=== PATIENT | male | born 1950 | race Caucasian/White ===

== ENCOUNTER 2017-03-21 21:19 | Inpatient (IN) | payer OTHER ==
[~2017-03-21] VITALS: Ht 185.4 cm; Wt 176.2 kg
[~2017-03-21 21:19] MED LIST: ALBU8.5H5 INH; ALLO300T PO; ALLO300T42 PO; ASCO500C2 PO; ASPI-515 PO; ASPI325T4; ASPI81TA18 PO; ATOR80TA75 PO; CHOL1CRY3 PO; CHOL500020 PO; CIPR500T3 PO; CYAN25009 PO; DILT120T3 PO; FLUT1DIS3 INH; FURO-92 PO; FURO10VI37 PO; INSU100V14 SQ-INSULIN; INSU100V8 SQ; LEVO750T26 PO; LOSA100T2 PO; NITR0.4T8 PO; POTA20PA PO; POTA20TA14 PO; RANI150C PO; RIVA10TA PO; RIVA20TA PO; SIMV80TA3; SOTA80TA PO; SOTA80TA18 PO; TIOT18CA INH
[2017-03-21] MEDS ORDERED: ASPIRIN 81 MG TABLET CHEW ONE (21:53)
[2017-03-21] MEDS ORDERED: ASPIRIN 81 MG TABLET CHEW PO ONE (22:00)
[2017-03-21] MEDS ORDERED: METF500T4 PO (22:23)
[2017-03-21] MEDS ORDERED: ALLO300T PO (22:23)
[2017-03-21] MEDS ORDERED: LOSA50TA6 PO (22:23)
[2017-03-21] MEDS ORDERED: GLIP10TA13 PO (22:23)
[2017-03-21] MEDS ORDERED: FURO80TA3 PO (22:23)
[2017-03-21] MEDS ORDERED: INSU100C5 SQ-INSULIN (22:23)
[2017-03-21] MEDS ORDERED: DULO20CA45 PO (22:23)
[2017-03-21] MEDS ORDERED: BUDE10.2 INH (22:23)
[2017-03-21 22:25] LABS: ASPARTATE AMINO TRANSFERASE 21 U/L (15-37); BLOOD UREA NITROGEN 20 mg/dL (7-18)
[2017-03-21 22:29] LABS: IS PT STATUS REG ER OR PRE ER? YES
[2017-03-21] MEDS ORDERED: MORPHINE SULFATE 4 MG/ML, 1ML IVPush PRN (23:30)
[2017-03-21] MEDS ORDERED: ONDANSETRON 2MG/ML, 2ML IVPush PRN (23:30)
[2017-03-22] MEDS ORDERED: ACETAMINOPHEN 325 MG TABLET PO PRN (00:30)
[2017-03-22] MEDS ORDERED: GLUCAGON 1 MG IM PRN (00:30)
[2017-03-22] MEDS ORDERED: DEXTROSE 50%, 50ML SYRINGE IVPush PRN (00:30)
[2017-03-22] MEDS ORDERED: PROMETHAZINE 25 MG/ML, 1ML IM PRN (00:30)
[2017-03-22] MEDS ORDERED: NITROGLYCERIN 0.4 MG/SPRAY SL PRN (00:30)
[2017-03-22] MEDS ORDERED: ONDANSETRON 2MG/ML, 2ML IVPush PRN (00:30)
[2017-03-22] MEDS ORDERED: DEXTROSE 4 GM TAB.CHEW PO PRN (00:30)
[2017-03-22] MEDS ORDERED: NITROGLYCERIN 0.4 MG BOTTLE (25 TABS) SL PRN ×2 (00:30)
[2017-03-22] MEDS ORDERED: morphine SULFATE 10 MG/ML, 1ML IVPush PRN (00:30)
[2017-03-22] MEDS ORDERED: MORPHINE SULFATE 4 MG/ML, 1ML IVPush PRN (00:52)
[2017-03-22] MEDS ORDERED: POTASSIUM CHLORIDE 20 MEQ TAB.ER.PRT PO ONE (01:00)
[2017-03-22 01:34] LABS: IS PT STATUS REG ER OR PRE ER? NO
[2017-03-22 01:47] VITALS: BP 129/80
[2017-03-22] MEDS: FAMOTIDINE 20 MG TABLET PO SCH ×2 (06:17→21:03)
[2017-03-22 06:26] LABS: BLOOD UREA NITROGEN 19 mg/dL (7-18)
[2017-03-22 06:32] LABS: IS PT STATUS REG ER OR PRE ER? NO
[2017-03-22 06:39] VITALS: BP 135/75
[2017-03-22 06:39] LABS: ASPARTATE AMINO TRANSFERASE 10 U/L (15-37)
[2017-03-22] MEDS: INSULIN ASPART 100 UNITS/ML, PEN SQ-INSULIN SCH ×6 (08:02→21:04)
[2017-03-22 08:22] LABS: PATH.CAST-FLAG NOT PRESENT; SPERM-FLAG NOT PRESENT; SRC-FLAG NOT PRESENT; XTAL-FLAG NOT PRESENT; YLC-FLAG NOT PRESENT
[2017-03-22] MEDS: ALBUTEROL/IPRATROPIUM 2.5MG/0.5MG, 3 ML NPPB SCH ×2 (09:00→20:46)
[2017-03-22] MEDS ORDERED: REGADENOSON 0.4 MG/5 ML SYRINGE ONE (09:47)
[2017-03-22] MEDS: FUROSEMIDE 40 MG/4 ML IV SCH ×2 (12:13→19:35)
[2017-03-22] MEDS: POTASSIUM CHLORIDE 20 MEQ TAB.ER.PRT PO SCH (12:13)
[2017-03-22] MEDS: DULOXETINE 20 MG CAPSULE.DR PO SCH ×2 (12:14→21:02)
[2017-03-22] MEDS: ASPIRIN 81 MG TABLET EC PO SCH (12:14)
[2017-03-22] MEDS: SOTALOL 120MG TABLET PO SCH ×2 (12:14→21:03)
[2017-03-22] MEDS: CYANOCOBALAMIN 1,000 MCG TABLET PO SCH (12:14)
[2017-03-22] MEDS: ALLOPURINOL 300 MG TABLET PO SCH (12:14)
[2017-03-22] MEDS: LOSARTAN 50MG TABLET PO SCH (12:15)
[2017-03-22] MEDS: RIVAROXABAN 20 MG TABLET PO SCH (12:15)
[2017-03-22] MEDS: SODIUM CHLORIDE FLUSH 10ML SYR IVF SCH ×2 (12:30→22:37)
[2017-03-22 12:43] VITALS: BP 116/90
[2017-03-22 20:00] VITALS: BP 143/79
[2017-03-22] MEDS: ATORVASTATIN 80 MG TABLET PO SCH (21:03)
[2017-03-23 01:27] VITALS: BP 126/81
[2017-03-23 06:37] LABS: BLOOD UREA NITROGEN 20 mg/dL (7-18)
[2017-03-23] MEDS: INSULIN ASPART 100 UNITS/ML, PEN SQ-INSULIN SCH ×6 (08:02→20:34)
[2017-03-23] MEDS: LOSARTAN 50MG TABLET PO SCH (08:10)
[2017-03-23] MEDS: RIVAROXABAN 20 MG TABLET PO SCH (08:10)
[2017-03-23] MEDS: CYANOCOBALAMIN 1,000 MCG TABLET PO SCH (08:10)
[2017-03-23] MEDS: FAMOTIDINE 20 MG TABLET PO SCH ×2 (08:10→20:24)
[2017-03-23] MEDS: ASPIRIN 81 MG TABLET EC PO SCH (08:10)
[2017-03-23] MEDS: DULOXETINE 20 MG CAPSULE.DR PO SCH ×2 (08:10→20:25)
[2017-03-23] MEDS: ALLOPURINOL 300 MG TABLET PO SCH (08:10)
[2017-03-23] MEDS: SOTALOL 120MG TABLET PO SCH ×2 (08:10→20:25)
[2017-03-23] MEDS: POTASSIUM CHLORIDE 20 MEQ TAB.ER.PRT PO SCH (08:10)
[2017-03-23] MEDS: FUROSEMIDE 40 MG/4 ML IV SCH (08:11)
[2017-03-23] MEDS: SODIUM CHLORIDE FLUSH 10ML SYR IVF SCH ×2 (08:12→20:24)
[2017-03-23 08:15] VITALS: BP 103/67
[2017-03-23] MEDS: ALBUTEROL/IPRATROPIUM 2.5MG/0.5MG, 3 ML NPPB SCH ×2 (09:00→21:00)
[2017-03-23 17:29] VITALS: BP 147/70
[2017-03-23 18:48] VITALS: BP 135/78
[2017-03-23] MEDS: ATORVASTATIN 80 MG TABLET PO SCH (20:25)
[2017-03-24 04:49] VITALS: BP 150/84
[2017-03-24 05:05] LABS: BLOOD UREA NITROGEN 22 mg/dL (7-18)
[2017-03-24 06:40] VITALS: BP 147/82
[2017-03-24] MEDS: ASPIRIN 81 MG TABLET EC PO SCH (08:29)
[2017-03-24] MEDS: INSULIN ASPART 100 UNITS/ML, PEN SQ-INSULIN SCH ×2 (08:29→08:32)
[2017-03-24] MEDS: FAMOTIDINE 20 MG TABLET PO SCH (08:30)
[2017-03-24] MEDS: POTASSIUM CHLORIDE 20 MEQ TAB.ER.PRT PO SCH (08:30)
[2017-03-24] MEDS: ALLOPURINOL 300 MG TABLET PO SCH (08:30)
[2017-03-24] MEDS: LOSARTAN 50MG TABLET PO SCH (08:31)
[2017-03-24] MEDS: CYANOCOBALAMIN 1,000 MCG TABLET PO SCH (08:31)
[2017-03-24] MEDS: DULOXETINE 20 MG CAPSULE.DR PO SCH (08:31)
[2017-03-24] MEDS: SOTALOL 120MG TABLET PO SCH (08:31)
[2017-03-24] MEDS: RIVAROXABAN 20 MG TABLET PO SCH (08:31)
[2017-03-24] MEDS: SODIUM CHLORIDE FLUSH 10ML SYR IVF SCH (08:32)
[2017-03-24] MEDS ORDERED: FUROSEMIDE 80 MG TABLET PO SCH (09:00)
[2017-03-24] MEDS: ALBUTEROL/IPRATROPIUM 2.5MG/0.5MG, 3 ML NPPB SCH (10:28)
== END 2017-03-24 12:06 | disposition home or self-care (01) | DRG 308 ==
LOC: ED 21:52 → SUATTDRO 23:32 → EDIP 23:52 → 5SO 03-22 00:28
PROVIDERS: ADMIT Internal Medicine; ATTEND Internal Medicine
DX: I48.0 Paroxysmal atrial fibrillation (principal); I50.43 Acute on chronic combined systolic (congestive) and diastolic (congestive) heart failure; E87.1 Hypo-osmolality and hyponatremia; J96.10 Chronic respiratory failure, unspecified whether with hypoxia or hypercapnia; E44.0 Moderate protein-calorie malnutrition; D68.69 Other thrombophilia; Z68.43 Body mass index [BMI] 50.0-59.9, adult; I11.0 Hypertensive heart disease with heart failure; E87.6 Hypokalemia; I25.119 Atherosclerotic heart disease of native coronary artery with unspecified angina pectoris; I25.5 Ischemic cardiomyopathy; D63.8 Anemia in other chronic diseases classified elsewhere; D72.829 Elevated white blood cell count, unspecified; E11.65 Type 2 diabetes mellitus with hyperglycemia; E66.01 Morbid (severe) obesity due to excess calories; E78.5 Hyperlipidemia, unspecified; J44.9 Chronic obstructive pulmonary disease, unspecified; K21.9 Gastro-esophageal reflux disease without esophagitis; M10.9 Gout, unspecified; Z96.652 Presence of left artificial knee joint; M48.02 Spinal stenosis, cervical region; Z79.01 Long term (current) use of anticoagulants; Z79.4 Long term (current) use of insulin; Z95.5 Presence of coronary angioplasty implant and graft; Z99.81 Dependence on supplemental oxygen
CPT/HCPCS: 36415; 71010; 78452; 80048; 80053; 80061; 81001; 82962; 83880; 84443; 84484; 85025; 93005; 93017; 93970; 94640; 96374; 96375; C8929; J1815; J1940; J2405; J2785; J7620; A9502; C9898

== ENCOUNTER 2017-03-27 19:47 | Inpatient (IN) | payer OTHER ==
[~2017-03-27] VITALS: Ht 175.3 cm; Wt 176.8 kg
[~2017-03-27 19:47] MED LIST changes: +BUDE10.2 INH; +DULO20CA45 PO; +FURO80TA3 PO; +GLIP10TA13 PO; +INSU100C5 SQ-INSULIN; +LOSA50TA6 PO; +METF500T4 PO
[2017-03-27] MEDS ORDERED: ASPIRIN 81 MG TABLET CHEW PO ONE (20:00)
[2017-03-27] MEDS ORDERED: SODIUM CHLORIDE FLUSH 10ML SYR IVF ONE (20:00)
[2017-03-27] MEDS ORDERED: ASPIRIN 81 MG TABLET CHEW ONE (20:07)
[2017-03-27] MEDS ORDERED: FAMOTIDINE 20 MG/2 ML ONE (20:07)
[2017-03-27] MEDS ORDERED: MAALOX/HYOSCYAMINE/LIDOCAINE 45 ML BOTTLE ONE (20:07)
[2017-03-27] MEDS ORDERED: FAMOTIDINE 20 MG/2 ML IVP ONE (20:30)
[2017-03-27] MEDS ORDERED: MAALOX/HYOSCYAMINE/LIDOCAINE 45 ML BOTTLE PO ONE (20:30)
[2017-03-27 20:32] LABS: ASPARTATE AMINO TRANSFERASE 17 U/L (15-37); BLOOD UREA NITROGEN 15 mg/dL (7-18)
[2017-03-27 20:48] LABS: IS PT STATUS REG ER OR PRE ER? YES
[2017-03-27] MEDS ORDERED: GLIP5TAB10 PO (21:06)
[2017-03-27] MEDS ORDERED: hydrALAzine 20 MG/ML, 1ML IVPush PRN (22:00)
[2017-03-27] MEDS ORDERED: HEPARIN 5,000 UNITS/ML, 1ML SQ SCH (22:00)
[2017-03-27] MEDS ORDERED: OXYcodone IR 5MG TABLET PO PRN (22:00)
[2017-03-27] MEDS ORDERED: morphine SULFATE 10 MG/ML, 1ML IVPush PRN (22:00)
[2017-03-27] MEDS ORDERED: POLYETHYLENE GLYCOL 17 GM PACKET PO PRN (22:00)
[2017-03-27] MEDS ORDERED: ONDANSETRON 2MG/ML, 2ML IVPush PRN (22:00)
[2017-03-27] MEDS ORDERED: LABETALOL 5MG/ML, 20ML IVPush PRN (22:00)
[2017-03-27] MEDS ORDERED: BISACODYL 10 MG SUPP PR PRN (22:00)
[2017-03-27] MEDS ORDERED: PANTOPRAZOLE 40 MG IV ONE (22:21)
[2017-03-27] MEDS ORDERED: NITROGLYCERIN 0.4 MG BOTTLE (25 TABS) SL PRN (22:30)
[2017-03-27] MEDS: SODIUM CHLORIDE 0.9% 1,000 ML IV SCH (22:31)
[2017-03-27] MEDS: PANTOPRAZOLE 40 MG IV IVPush SCH (22:31)
[2017-03-27] MEDS ORDERED: ALBUTEROL SULFATE 2.5 MG/3 ML NPPB PRN (23:45)
[2017-03-28] MEDS: SOTALOL 120MG TABLET PO SCH ×3 (00:55→20:46)
[2017-03-28 03:40] VITALS: BP 106/72
[2017-03-28] MEDS: SODIUM CHLORIDE 0.9% 1,000 ML IV SCH ×2 (05:06→09:00)
[2017-03-28 05:42] LABS: ASPARTATE AMINO TRANSFERASE 20 U/L (15-37); BLOOD UREA NITROGEN 15 mg/dL (7-18)
[2017-03-28] MEDS: INSULIN ASPART 100 UNITS/ML, PEN SQ-INSULIN SCH ×4 (07:00→22:14)
[2017-03-28] MEDS ORDERED: IPRATROPIUM 0.5 MG/2.5 ML INHA NPPB SCH ×2 (09:00)
[2017-03-28] MEDS: FLUTICASONE/VILANTEROL 200-25MCG/INH INH SCH (09:00)
[2017-03-28 09:05] VITALS: BP 124/65
[2017-03-28] MEDS: SENNA/DOCUSATE TABLET PO SCH (10:11)
[2017-03-28] MEDS: PANTOPRAZOLE 40 MG IV IVPush SCH (10:11)
[2017-03-28] MEDS: ASPIRIN 81 MG TABLET EC PO SCH (10:12)
[2017-03-28] MEDS: LOSARTAN 50MG TABLET PO SCH (10:12)
[2017-03-28] MEDS: RIVAROXABAN 20 MG TABLET PO SCH (10:12)
[2017-03-28] MEDS: DULOXETINE 20 MG CAPSULE.DR PO SCH ×2 (10:12→20:46)
[2017-03-28] MEDS: ALLOPURINOL 300 MG TABLET PO SCH (10:12)
[2017-03-28 14:15] VITALS: BP 129/81
[2017-03-28] MEDS ORDERED: MIDAZOLAM 1 MG/ML, 5ML ONE (14:42)
[2017-03-28] MEDS ORDERED: FENTANYL PF 100 MCG/2ML ONE (14:42)
[2017-03-28] MEDS: IPRATROPIUM 0.5 MG/2.5 ML INHA NPPB SCH ×2 (15:00→20:06)
[2017-03-28] MEDS ORDERED: POTASSIUM CHLORIDE 40 MEQ in SODIUM CHLORIDE 0.9% 500 ML IV ONE (17:30)
[2017-03-28 19:33] VITALS: BP 116/68
[2017-03-28] MEDS: ATORVASTATIN 80 MG TABLET PO SCH (20:46)
[2017-03-29 01:14] VITALS: BP 117/64
[2017-03-29] MEDS: IPRATROPIUM 0.5 MG/2.5 ML INHA NPPB SCH ×4 (03:00→21:00)
[2017-03-29 04:43] LABS: BLOOD UREA NITROGEN 12 mg/dL (7-18)
[2017-03-29] MEDS: INSULIN ASPART 100 UNITS/ML, PEN SQ-INSULIN SCH ×4 (07:00→20:53)
[2017-03-29 08:30] VITALS: BP 120/77
[2017-03-29] MEDS: DULOXETINE 20 MG CAPSULE.DR PO SCH ×2 (08:53→20:03)
[2017-03-29] MEDS: ALLOPURINOL 300 MG TABLET PO SCH (08:53)
[2017-03-29] MEDS: LOSARTAN 50MG TABLET PO SCH (08:53)
[2017-03-29] MEDS: SENNA/DOCUSATE TABLET PO SCH (08:53)
[2017-03-29] MEDS: RIVAROXABAN 20 MG TABLET PO SCH (08:53)
[2017-03-29] MEDS: PANTOPRAZOLE 40 MG IV IVPush SCH (08:54)
[2017-03-29] MEDS: FLUTICASONE/VILANTEROL 200-25MCG/INH INH SCH (09:00)
[2017-03-29] MEDS: SOTALOL 120MG TABLET PO SCH ×2 (09:00→20:03)
[2017-03-29] MEDS: ASPIRIN 81 MG TABLET EC PO SCH (09:00)
[2017-03-29 14:30] VITALS: BP 130/75
[2017-03-29 18:43] VITALS: BP 131/75
[2017-03-29] MEDS: ATORVASTATIN 80 MG TABLET PO SCH (20:02)
[2017-03-29] MEDS ORDERED: INSULIN ASPART 100 UNITS/ML, PEN SQ-INSULIN SCH (21:00)
[2017-03-30 01:41] VITALS: BP 138/80
[2017-03-30] MEDS: IPRATROPIUM 0.5 MG/2.5 ML INHA NPPB SCH ×2 (02:31→08:10)
[2017-03-30] MEDS: INSULIN ASPART 100 UNITS/ML, PEN SQ-INSULIN SCH ×2 (07:23→10:54)
[2017-03-30] MEDS: SENNA/DOCUSATE TABLET PO SCH (07:30)
[2017-03-30 07:33] VITALS: BP 137/81
[2017-03-30] MEDS: LOSARTAN 50MG TABLET PO SCH (07:39)
[2017-03-30] MEDS: RIVAROXABAN 20 MG TABLET PO SCH (07:40)
[2017-03-30] MEDS: SOTALOL 120MG TABLET PO SCH (07:40)
[2017-03-30] MEDS: DULOXETINE 20 MG CAPSULE.DR PO SCH (07:41)
[2017-03-30] MEDS: ASPIRIN 81 MG TABLET EC PO SCH (07:41)
[2017-03-30] MEDS: ALLOPURINOL 300 MG TABLET PO SCH (07:42)
[2017-03-30] MEDS: PANTOPRAZOLE 40 MG IV IVPush SCH (07:43)
[2017-03-30] MEDS: FLUTICASONE/VILANTEROL 200-25MCG/INH INH SCH (10:53)
[2017-03-30] MEDS ORDERED: LACTOBACILLUS CHEW TABLET PO SCH (11:00)
[2017-03-30] MEDS ORDERED: AMOXICILLIN/CLAV 500-125MG TABLET PO SCH (11:00)
[2017-03-30] MEDS ORDERED: ACID1TAB7 PO (12:30)
[2017-03-30] MEDS ORDERED: AMOX-367 PO (12:30)
[2017-03-30] MEDS ORDERED: PANT40TA3 PO (12:30)
== END 2017-03-30 14:17 | disposition home health service (06) | DRG 291 ==
LOC: ED 21:23 → EDIP 21:46 → 3NE 23:00
PROVIDERS: ADMIT Internal Medicine; ATTEND Internal Medicine
DX: I11.0 Hypertensive heart disease with heart failure (principal); K85.30 Drug induced acute pancreatitis without necrosis or infection; K85.00 Idiopathic acute pancreatitis without necrosis or infection; N39.0 Urinary tract infection, site not specified; E44.0 Moderate protein-calorie malnutrition; J96.10 Chronic respiratory failure, unspecified whether with hypoxia or hypercapnia; D68.69 Other thrombophilia; Z68.43 Body mass index [BMI] 50.0-59.9, adult; K21.9 Gastro-esophageal reflux disease without esophagitis; I48.0 Paroxysmal atrial fibrillation; I25.5 Ischemic cardiomyopathy; B95.1 Streptococcus, group B, as the cause of diseases classified elsewhere; E66.01 Morbid (severe) obesity due to excess calories; D63.8 Anemia in other chronic diseases classified elsewhere; E11.65 Type 2 diabetes mellitus with hyperglycemia; E78.5 Hyperlipidemia, unspecified; E87.6 Hypokalemia; I25.10 Atherosclerotic heart disease of native coronary artery without angina pectoris; J44.9 Chronic obstructive pulmonary disease, unspecified; K76.0 Fatty (change of) liver, not elsewhere classified; Z96.652 Presence of left artificial knee joint; K80.20 Calculus of gallbladder without cholecystitis without obstruction; M10.9 Gout, unspecified; M48.02 Spinal stenosis, cervical region; N28.1 Cyst of kidney, acquired; I50.9 Heart failure, unspecified; Z95.5 Presence of coronary angioplasty implant and graft; I25.2 Old myocardial infarction; Z79.01 Long term (current) use of anticoagulants; Z79.82 Long term (current) use of aspirin; Z79.899 Other long term (current) drug therapy; Z82.49 Family history of ischemic heart disease and other diseases of the circulatory system; Z83.3 Family history of diabetes mellitus
CPT/HCPCS: 36415; 71010; 74181; 76700; 80048; 80053; 80061; 81001; 82962; 83036; 83690; 83735; 83880; 84439; 84443; 84484; 85025; 85379; 85610; 85730; 87086; 87147; 93005; 94640; 96374; 99156; 99157; J1815; J2250; J3010; J3480; J7613; J7644; C9113; J7030; J7040; S0028

== ENCOUNTER 2017-04-03 16:58 | Inpatient (IN) | payer OTHER ==
[~2017-04-03] VITALS: Ht 185.4 cm; Wt 179.0 kg
[~2017-04-03 16:58] MED LIST changes: +ACID1TAB7 PO; +AMOX-367 PO; +GLIP5TAB10 PO; +PANT40TA3 PO
[2017-04-03] MEDS ORDERED: PANTOPRAZOLE 80 MG in SODIUM CHLORIDE 0.9% 50 ML IVPB ONE (17:17)
[2017-04-03] MEDS ORDERED: SODIUM CHLORIDE 0.9% 1,000 ML IV ONE (17:17)
[2017-04-03] MEDS ORDERED: PANTOPRAZOLE 80 MG in SODIUM CHLORIDE 0.9% 100 ML IV SCH (17:17)
[2017-04-03] MEDS ORDERED: PLEASE ENTER HEIGHT AND WEIGHT MC SCH (17:30)
[2017-04-03] MEDS ORDERED: SODIUM CHLORIDE FLUSH 10ML SYR IVF ONE (17:30)
[2017-04-03 17:51] LABS: BLOOD UREA NITROGEN 31 mg/dL (7-18)
[2017-04-03 17:55] LABS: ASPARTATE AMINO TRANSFERASE 17 U/L (15-37)
[2017-04-03] MEDS ORDERED: ANTI INHIBITOR COAGULANT COMP IVPush ONE (18:30)
[2017-04-03] MEDS ORDERED: GLUCAGON 1 MG IM PRN (19:00)
[2017-04-03] MEDS: PANTOPRAZOLE 80 MG in SODIUM CHLORIDE 0.9% 100 ML IV SCH (19:00)
[2017-04-03] MEDS ORDERED: DEXTROSE 50%, 50ML SYRINGE IVPush PRN (19:00)
[2017-04-03] MEDS ORDERED: DEXTROSE 4 GM TAB.CHEW PO PRN (19:00)
[2017-04-03] MEDS ORDERED: ENALAPRILAT 1.25 MG/ML, 2ML IVPush PRN (19:30)
[2017-04-03] MEDS ORDERED: PROMETHAZINE 25 MG/ML, 1ML IM PRN (19:30)
[2017-04-03] MEDS ORDERED: LABETALOL 5MG/ML, 20ML IVPush PRN (19:30)
[2017-04-03] MEDS ORDERED: ONDANSETRON 2MG/ML, 2ML IVPush PRN (19:30)
[2017-04-03] MEDS ORDERED: hydrALAzine 20 MG/ML, 1ML IVPush PRN (19:30)
[2017-04-03 19:40] LABS: IS PT STATUS REG ER OR PRE ER? YES
[2017-04-03] MEDS: SODIUM CHLORIDE 0.9% 1,000 ML IV SCH (20:46)
[2017-04-03 21:00] VITALS: BP 142/86
[2017-04-03] MEDS: INSULIN DETEMIR 100 UNITS/ML, PEN SQ-INSULIN SCH (21:00)
[2017-04-03] MEDS: ATORVASTATIN 80 MG TABLET PO SCH (21:36)
[2017-04-03] MEDS: SODIUM CHLORIDE FLUSH 10ML SYR IVF SCH (21:36)
[2017-04-03] MEDS: SOTALOL 120MG TABLET PO SCH (21:36)
[2017-04-03] MEDS: DULOXETINE 20 MG CAPSULE.DR PO SCH (21:37)
[2017-04-04] MEDS: PANTOPRAZOLE 80 MG in SODIUM CHLORIDE 0.9% 100 ML IV SCH ×3 (01:07→22:54)
[2017-04-04 01:46] LABS: ASPARTATE AMINO TRANSFERASE 18 U/L (15-37); BLOOD UREA NITROGEN 31 mg/dL (7-18)
[2017-04-04 01:52] LABS: IS PT STATUS REG ER OR PRE ER? NO
[2017-04-04 02:00] VITALS: BP 126/77
[2017-04-04] MEDS: SODIUM CHLORIDE 0.9% 1,000 ML IV SCH ×4 (05:21→22:54)
[2017-04-04] MEDS: ALBUTEROL/IPRATROPIUM 2.5MG/0.5MG, 3 ML NPPB SCH ×3 (07:17→21:24)
[2017-04-04 07:18] VITALS: BP 150/71
[2017-04-04] MEDS: FLUTICASONE/VILANTEROL 200-25MCG/INH INH SCH (09:00)
[2017-04-04] MEDS ORDERED: FLUTICASONE/VILANTEROL 100-25MCG/INH INH SCH (09:00)
[2017-04-04] MEDS: SODIUM CHLORIDE FLUSH 10ML SYR IVF SCH ×2 (09:10→20:23)
[2017-04-04] MEDS: DULOXETINE 20 MG CAPSULE.DR PO SCH ×2 (09:10→20:24)
[2017-04-04] MEDS: SOTALOL 120MG TABLET PO SCH ×2 (09:10→20:24)
[2017-04-04] MEDS: LOSARTAN 50MG TABLET PO SCH (09:10)
[2017-04-04] MEDS: CYANOCOBALAMIN 1,000 MCG TABLET PO SCH (09:10)
[2017-04-04] MEDS: FUROSEMIDE 80 MG TABLET PO SCH (09:11)
[2017-04-04] MEDS: ALLOPURINOL 300 MG TABLET PO SCH (09:11)
[2017-04-04] MEDS: INSULIN DETEMIR 100 UNITS/ML, PEN SQ-INSULIN SCH ×2 (09:11→20:24)
[2017-04-04 14:28] VITALS: BP 125/81
[2017-04-04] MEDS: INSULIN ASPART 100 UNITS/ML, PEN SQ-INSULIN SCH ×2 (18:32→20:25)
[2017-04-04 19:07] VITALS: BP 124/74
[2017-04-04] MEDS: ATORVASTATIN 80 MG TABLET PO SCH (20:23)
[2017-04-05 01:24] VITALS: BP 147/76
[2017-04-05] MEDS: SODIUM CHLORIDE 0.9% 1,000 ML IV SCH ×3 (05:57→20:38)
[2017-04-05] MEDS: INSULIN ASPART 100 UNITS/ML, PEN SQ-INSULIN SCH ×4 (07:00→20:35)
[2017-04-05] MEDS ORDERED: KETAMINE 10 MG/ML, 20ML ONE (08:05)
[2017-04-05 09:00] VITALS: BP 112/57
[2017-04-05] MEDS: INSULIN DETEMIR 100 UNITS/ML, PEN SQ-INSULIN SCH ×2 (09:00→20:36)
[2017-04-05] MEDS: FLUTICASONE/VILANTEROL 200-25MCG/INH INH SCH (09:00)
[2017-04-05] MEDS: SODIUM CHLORIDE FLUSH 10ML SYR IVF SCH ×2 (09:10→20:35)
[2017-04-05] MEDS: SOTALOL 120MG TABLET PO SCH ×2 (09:19→20:34)
[2017-04-05] MEDS: LOSARTAN 50MG TABLET PO SCH (09:20)
[2017-04-05] MEDS: DULOXETINE 20 MG CAPSULE.DR PO SCH ×2 (09:21→20:35)
[2017-04-05] MEDS: ALLOPURINOL 300 MG TABLET PO SCH (09:22)
[2017-04-05] MEDS: CYANOCOBALAMIN 1,000 MCG TABLET PO SCH (09:22)
[2017-04-05] MEDS: ALBUTEROL/IPRATROPIUM 2.5MG/0.5MG, 3 ML NPPB SCH ×3 (10:45→20:44)
[2017-04-05] MEDS: PANTOPRAZOLE 80 MG in SODIUM CHLORIDE 0.9% 100 ML IV SCH (11:12)
[2017-04-05] MEDS ORDERED: POTASSIUM CHLORIDE 20 MEQ TAB.ER.PRT PO ONE (12:00)
[2017-04-05] MEDS ORDERED: PROPOFOL 10 MG/ML, 20ML ONE (13:25)
[2017-04-05 15:14] VITALS: BP 151/82
[2017-04-05] MEDS: SUCRALFATE 1 GM/10 ML UDC PO SCH ×2 (15:23→17:47)
[2017-04-05] MEDS: FUROSEMIDE 80 MG TABLET PO SCH (17:46)
[2017-04-05 20:00] VITALS: BP 145/76
[2017-04-05] MEDS: PANTOPROZOLE 40MG TABLET PO SCH (20:34)
[2017-04-05] MEDS: ATORVASTATIN 80 MG TABLET PO SCH (20:34)
[2017-04-06 02:00] VITALS: BP 156/81
[2017-04-06] MEDS: SODIUM CHLORIDE 0.9% 1,000 ML IV SCH ×2 (03:48→12:00)
[2017-04-06 06:07] LABS: BLOOD UREA NITROGEN 12 mg/dL (7-18)
[2017-04-06 07:02] VITALS: BP 151/78
[2017-04-06] MEDS: ALBUTEROL/IPRATROPIUM 2.5MG/0.5MG, 3 ML NPPB SCH (07:40)
[2017-04-06] MEDS: CYANOCOBALAMIN 1,000 MCG TABLET PO SCH (08:13)
[2017-04-06] MEDS: ALLOPURINOL 300 MG TABLET PO SCH (08:13)
[2017-04-06] MEDS: PANTOPROZOLE 40MG TABLET PO SCH ×2 (08:13→20:54)
[2017-04-06] MEDS: SOTALOL 120MG TABLET PO SCH ×2 (08:14→20:55)
[2017-04-06] MEDS: LOSARTAN 50MG TABLET PO SCH (08:14)
[2017-04-06] MEDS: DULOXETINE 20 MG CAPSULE.DR PO SCH ×2 (08:14→20:54)
[2017-04-06] MEDS: FUROSEMIDE 80 MG TABLET PO SCH (08:14)
[2017-04-06] MEDS: FLUTICASONE/VILANTEROL 200-25MCG/INH INH SCH (08:21)
[2017-04-06] MEDS: SODIUM CHLORIDE FLUSH 10ML SYR IVF SCH ×2 (08:21→20:59)
[2017-04-06] MEDS: INSULIN ASPART 100 UNITS/ML, PEN SQ-INSULIN SCH ×4 (08:21→20:58)
[2017-04-06] MEDS: INSULIN DETEMIR 100 UNITS/ML, PEN SQ-INSULIN SCH ×2 (08:22→20:58)
[2017-04-06 12:28] VITALS: BP 132/80
[2017-04-06] MEDS ORDERED: ALBUTEROL/IPRATROPIUM 2.5MG/0.5MG, 3 ML NPPB PRN (16:00)
[2017-04-06] MEDS ORDERED: RIVAROXABAN 20 MG TABLET PO ONE (16:30)
[2017-04-06] MEDS ORDERED: ASPIRIN 81 MG TABLET CHEW PO ONE (16:30)
[2017-04-06] MEDS: SUCRALFATE 1 GM/10 ML UDC PO SCH ×2 (17:29→20:55)
[2017-04-06 19:32] VITALS: BP 149/77
[2017-04-06] MEDS: ATORVASTATIN 80 MG TABLET PO SCH (20:54)
[2017-04-07 00:27] VITALS: BP 138/77
[2017-04-07 06:40] VITALS: BP 135/74
[2017-04-07] MEDS: INSULIN ASPART 100 UNITS/ML, PEN SQ-INSULIN SCH (08:18)
[2017-04-07] MEDS ORDERED: SUCR1ORA2 PO (08:18)
[2017-04-07] MEDS: INSULIN DETEMIR 100 UNITS/ML, PEN SQ-INSULIN SCH (08:51)
[2017-04-07] MEDS: FLUTICASONE/VILANTEROL 200-25MCG/INH INH SCH (08:51)
[2017-04-07] MEDS: SUCRALFATE 1 GM/10 ML UDC PO SCH (08:52)
[2017-04-07] MEDS: LOSARTAN 50MG TABLET PO SCH (08:52)
[2017-04-07] MEDS: SOTALOL 120MG TABLET PO SCH (08:52)
[2017-04-07] MEDS: DULOXETINE 20 MG CAPSULE.DR PO SCH (08:53)
[2017-04-07] MEDS: ALLOPURINOL 300 MG TABLET PO SCH (08:53)
[2017-04-07] MEDS: CYANOCOBALAMIN 1,000 MCG TABLET PO SCH (08:53)
[2017-04-07] MEDS: FUROSEMIDE 80 MG TABLET PO SCH (08:53)
[2017-04-07] MEDS: PANTOPROZOLE 40MG TABLET PO SCH (08:58)
[2017-04-07] MEDS ORDERED: RIVAROXABAN 20 MG TABLET PO SCH (09:00)
[2017-04-07] MEDS: SODIUM CHLORIDE FLUSH 10ML SYR IVF SCH (09:00)
[2017-04-07] MEDS ORDERED: ASPIRIN 81 MG TABLET EC PO SCH (09:00)
[2017-04-07] MEDS ORDERED: PHENAZOPYRIDINE 100 MG TABLET PO SCH (11:30)
== END 2017-04-07 11:55 | disposition home or self-care (01) | DRG 378 ==
LOC: ED 17:56 → EDIP 18:05 → 4EST 20:11
PROVIDERS: ADMIT Internal Medicine; ATTEND Internal Medicine
PROC: 0DB68ZX Excision of Stomach, Via Natural or Artificial Opening Endoscopic, Diagnostic (ICD-10-PCS; principal; 2017-04-04)
DX: K25.4 Chronic or unspecified gastric ulcer with hemorrhage (principal); J96.10 Chronic respiratory failure, unspecified whether with hypoxia or hypercapnia; D68.69 Other thrombophilia; Z68.43 Body mass index [BMI] 50.0-59.9, adult; I50.32 Chronic diastolic (congestive) heart failure; K92.1 Melena; E78.5 Hyperlipidemia, unspecified; I11.0 Hypertensive heart disease with heart failure; I25.10 Atherosclerotic heart disease of native coronary artery without angina pectoris; I25.2 Old myocardial infarction; I25.5 Ischemic cardiomyopathy; I50.9 Heart failure, unspecified; J44.9 Chronic obstructive pulmonary disease, unspecified; K21.9 Gastro-esophageal reflux disease without esophagitis; M10.9 Gout, unspecified; D64.9 Anemia, unspecified; E11.65 Type 2 diabetes mellitus with hyperglycemia; E66.01 Morbid (severe) obesity due to excess calories; I35.8 Other nonrheumatic aortic valve disorders; I48.0 Paroxysmal atrial fibrillation; M48.02 Spinal stenosis, cervical region; Z96.652 Presence of left artificial knee joint; Z79.01 Long term (current) use of anticoagulants; Z79.899 Other long term (current) drug therapy; Z82.49 Family history of ischemic heart disease and other diseases of the circulatory system; Z83.3 Family history of diabetes mellitus; Z87.11 Personal history of peptic ulcer disease; Z95.5 Presence of coronary angioplasty implant and graft; Z99.81 Dependence on supplemental oxygen
CPT/HCPCS: 36415; 71010; 80048; 80053; 81003; 82962; 83690; 83735; 84100; 84484; 85014; 85018; 85025; 85610; 86850; 86900; 87324; 88305; 93005; 94640; 96365; 96375; J1815; J2704; J7198; J7620; C9113; J7030

== ENCOUNTER 2017-09-03 21:12 | Inpatient (IN) | payer OTHER ==
[~2017-09-03] VITALS: Ht 185.4 cm; Wt 180.0 kg
[~2017-09-03 21:12] MED LIST changes: -ALLO300T42 PO; +ALLO300T80 PO; +ASPI-696 PO; +ASPI325T17; -ASPI325T4; -ASPI81TA18 PO; +ATOR-2 PO; -ATOR80TA75 PO; +NITR0.4T28 PO; -NITR0.4T8 PO; +SUCR1ORA5 PO
[2017-09-03] MEDS ORDERED: ONDANSETRON ODT 4 MG ONE (21:40)
[2017-09-03] MEDS ORDERED: ONDANSETRON 2MG/ML, 2ML ONE ×2 (21:40→22:56)
[2017-09-03 21:45] LABS: HEMATOCRIT 40.7 % (39.2-51.8); HEMOGLOBIN 13.6 g/dL (13.7-18.0); WHITE BLOOD COUNT 13.2 x10^3/uL (3.4-10)
[2017-09-03 21:54] LABS: BLOOD UREA NITROGEN 25 mg/dL (7-18)
[2017-09-03] MEDS ORDERED: SODIUM CHLORIDE FLUSH 10ML SYR IVF ONE (22:00)
[2017-09-03] MEDS ORDERED: SODIUM CHLORIDE 0.9% 1,000ML IVBOLUS ONE (22:00)
[2017-09-03] MEDS ORDERED: ONDANSETRON 2MG/ML, 2ML IVPush ONE (22:00)
[2017-09-03] MEDS ORDERED: OMNIPAQUE 350 MG/ML, 100ML BOTTLE ONE (22:31)
[2017-09-03] MEDS ORDERED: morphine SULFATE 10 MG/ML, 1ML ONE (22:55)
[2017-09-03] MEDS ORDERED: KETOROLAC 30 MG/1 ML ONE (22:55)
[2017-09-03] MEDS ORDERED: KETOROLAC 30 MG/1 ML IVPush ONE (23:00)
[2017-09-03] MEDS ORDERED: MORPHINE SULFATE 4 MG/ML, 1ML IVPush PRN (23:00)
[2017-09-03 23:14] LABS: PATH.CAST-FLAG NOT PRESENT; SPERM-FLAG NOT PRESENT; SRC-FLAG NOT PRESENT; XTAL-FLAG NOT PRESENT; YLC-FLAG NOT PRESENT
[2017-09-03] MEDS ORDERED: CEFTRIAXONE PMX 1GM/50ML 50 ML ONE (23:29)
[2017-09-03] MEDS ORDERED: POTASSIUM CHLORIDE 20 MEQ TAB.ER.PRT PO ONE (23:30)
[2017-09-03] MEDS ORDERED: CEFTRIAXONE PMX 1GM/50ML 50 ML IVPB ONE (23:30)
[2017-09-03] MEDS ORDERED: morphine SULFATE 10 MG/ML, 1ML IVPush PRN (23:30)
[2017-09-04] MEDS ORDERED: PROPOFOL 10 MG/ML, 50ML ONE (01:03)
[2017-09-04] MEDS ORDERED: SUCCINYLCHOLINE 20 MG/ML, 10ML ONE (01:03)
[2017-09-04] MEDS ORDERED: FENTANYL PF 100 MCG/2ML ONE (01:03)
[2017-09-04] MEDS ORDERED: HYDROmorphone 1 MG/ML, 1ML IV PRN (01:30)
[2017-09-04] MEDS ORDERED: FENTANYL PF 100 MCG/2ML IV PRN (01:30)
[2017-09-04] MEDS ORDERED: LABETALOL 5MG/ML, 20ML IV PRN (01:30)
[2017-09-04] MEDS ORDERED: ONDANSETRON 2MG/ML, 2ML IVPush PRN ×2 (01:30→02:00)
[2017-09-04] MEDS ORDERED: OXYcodone 5 MG/5 ML ORAL.SOL UDC PO PRN (01:30)
[2017-09-04] MEDS ORDERED: hydrALAzine 20 MG/ML, 1ML IV PRN (01:30)
[2017-09-04] MEDS ORDERED: SODIUM CHLORIDE 0.9% 1,000 ML IV SCH (01:42)
[2017-09-04] MEDS ORDERED: DEXTROSE 4 GM TAB.CHEW PO PRN (02:00)
[2017-09-04] MEDS ORDERED: DEXTROSE 50%, 50ML SYRINGE IVPush PRN (02:00)
[2017-09-04] MEDS ORDERED: morphine SULFATE 10 MG/ML, 1ML IVPush PRN (02:00)
[2017-09-04] MEDS ORDERED: GLUCAGON 1 MG IM PRN (02:00)
[2017-09-04] MEDS ORDERED: ACETAMINOPHEN 325 MG TABLET PO PRN (02:00)
[2017-09-04] MEDS ORDERED: hydrALAzine 20 MG/ML, 1ML IVPush PRN (02:00)
[2017-09-04] MEDS ORDERED: OXYcodone 5 MG/5 ML ORAL.SOL UDC ONE (02:09)
[2017-09-04] MEDS ORDERED: LACTATED RINGERS 1,000 ML IV SCH (04:00)
[2017-09-04] MEDS ORDERED: ALBUTEROL/IPRATROPIUM 2.5MG/0.5MG, 3 ML ONE (06:52)
[2017-09-04 07:02] VITALS: BP 132/72
[2017-09-04] MEDS ORDERED: ALBUTEROL/IPRATROPIUM 2.5MG/0.5MG, 3 ML NPPB SCH (09:00)
[2017-09-04] MEDS ORDERED: SODIUM CHLORIDE FLUSH 10ML SYR IVF SCH (09:00)
[2017-09-04 09:01] LABS: HEMOGLOBIN 12.8 g/dL (13.7-18.0)
[2017-09-04 09:13] LABS: BLOOD UREA NITROGEN 22 mg/dL (7-18)
[2017-09-04] MEDS ORDERED: MAALOX/HYOSCYAMINE/LIDOCAINE 45 ML BTL PO ONE (11:00)
[2017-09-04] MEDS ORDERED: FAMOTIDINE 20 MG TABLET PO ONE (11:00)
[2017-09-04 11:56] LABS: IS PT STATUS REG ER OR PRE ER? NO
[2017-09-04 13:22] VITALS: BP 114/76
[2017-09-04] MEDS ORDERED: POTASSIUM CHLORIDE 20 MEQ TAB.ER.PRT PO ONE (16:00)
[2017-09-04 16:38] LABS: IS PT STATUS REG ER OR PRE ER? NO
[2017-09-04] MEDS ORDERED: CEFD300C37 PO (17:37)
[2017-09-04 18:56] VITALS: BP 150/74
[2017-09-04] MEDS ORDERED: CEFTRIAXONE PMX 1GM/50ML 50 ML IV SCH (23:00)
== END 2017-09-04 19:00 | disposition home or self-care (01) | DRG 694 ==
LOC: ED 22:13 → EDIP 23:40 → 4NOR 09-04 02:56
PROVIDERS: ADMIT Hospitalist; ATTEND Hospitalist
PROC: 0T778DZ Dilation of Left Ureter with Intraluminal Device, Via Natural or Artificial Opening Endoscopic (ICD-10-PCS; principal; 2017-09-04 00:15)
DX: N13.2 Hydronephrosis with renal and ureteral calculous obstruction (principal); J96.10 Chronic respiratory failure, unspecified whether with hypoxia or hypercapnia; I48.0 Paroxysmal atrial fibrillation; I11.0 Hypertensive heart disease with heart failure; I50.9 Heart failure, unspecified; E11.9 Type 2 diabetes mellitus without complications; E78.5 Hyperlipidemia, unspecified; N21.1 Calculus in urethra; Z96.652 Presence of left artificial knee joint; I25.10 Atherosclerotic heart disease of native coronary artery without angina pectoris; I25.5 Ischemic cardiomyopathy; J44.9 Chronic obstructive pulmonary disease, unspecified; K21.9 Gastro-esophageal reflux disease without esophagitis; M10.9 Gout, unspecified; N30.91 Cystitis, unspecified with hematuria; Z87.891 Personal history of nicotine dependence; Z95.5 Presence of coronary angioplasty implant and graft; Z99.81 Dependence on supplemental oxygen; I25.2 Old myocardial infarction; Z79.899 Other long term (current) drug therapy
CPT/HCPCS: 36415; 74177; 74420; 80048; 81001; 82040; 82962; 83735; 84100; 84484; 85025; 87077; 87086; 87186; 93005; 94640; 96361; 96365; 96375; J0696; J1885; J2405; J2704; J3010; J7620; Q9967; C1769; C2617; J0330; J7030

== ENCOUNTER 2017-09-05 09:16 | Emergency (ER) | payer OTHER ==
[~2017-09-05] VITALS: Ht 185.4 cm; Wt 180.0 kg
[~2017-09-05 09:16] MED LIST changes: +CEFD300C37 PO
[2017-09-05] MEDS ORDERED: MORPHINE SULFATE 4 MG/ML, 1ML IVPush PRN (09:30)
[2017-09-05] MEDS ORDERED: CEFTRIAXONE PMX 2GM/50ML 50 ML IV ONE (09:30)
[2017-09-05] MEDS ORDERED: SODIUM CHLORIDE FLUSH 10ML SYR IVF ONE (09:30)
[2017-09-05] MEDS ORDERED: ONDANSETRON 2MG/ML, 2ML IVPush ONE (09:30)
[2017-09-05 09:52] LABS: BLOOD UREA NITROGEN 17 mg/dL (7-18)
[2017-09-05 10:04] LABS: HEMATOCRIT 36.8 % (39.2-51.8); HEMOGLOBIN 12.5 g/dL (13.7-18.0); WHITE BLOOD COUNT 8.7 x10^3/uL (3.4-10)
[2017-09-05 12:00] VITALS: BP 136/91
== END 2017-09-05 12:03 | disposition home or self-care (01) ==
LOC: ED 09:48
DX: N20.1 Calculus of ureter (principal); N30.01 Acute cystitis with hematuria; J44.9 Chronic obstructive pulmonary disease, unspecified; K21.9 Gastro-esophageal reflux disease without esophagitis; E11.65 Type 2 diabetes mellitus with hyperglycemia; E78.5 Hyperlipidemia, unspecified; I25.10 Atherosclerotic heart disease of native coronary artery without angina pectoris; I11.0 Hypertensive heart disease with heart failure; I50.9 Heart failure, unspecified; I25.2 Old myocardial infarction
CPT/HCPCS: 36415; 80048; 82040; 85025; 93005; 96365; 99285; J0696

== ENCOUNTER 2018-02-23 21:18 | Emergency (ER) | payer OTHER ==
[~2018-02-23] VITALS: Ht 185.4 cm; Wt 170.0 kg
[2018-02-23 21:51] LABS: PH, VENOUS 7.373 pH (7.320-7.420)
[2018-02-23 21:52] LABS: MICROSCOPIC NOT IND
[2018-02-23 21:53] LABS: BASOPHILS # (AUTO) 0.08 x10^3/uL (0-0.1); BASOPHILS % (AUTO) 1 % (0-1); EOSINOPHILS # (AUTO) 0.16 x10^3/uL (0-0.4); EOSINOPHILS % (AUTO) 2 % (1-7); LYMPHOCYTES # (AUTO) 3.96 x10^3/uL (1-3.4); LYMPHOCYTES % (AUTO) 41 % (22-44); MD NO; MEAN CORPUSCULAR HEMOGLOBIN 31.9 pg (27.5-34.5); MEAN CORPUSCULAR VOLUME 93.7 fL (81-97); MEAN PLATELET VOLUME 9.4 fL (7.4-10.4); MONOCYTES # (AUTO) 0.88 x10^3/uL (0.2-0.8); MONOCYTES % (AUTO) 9 % (2-9); NEUTROPHILS # (AUTO) 4.51 x10^3/uL (1.8-6.8); NEUTROPHILS % (AUTO) 47 % (42-75); PLATELET COUNT 239 x10^3/uL (130-400); RED BLOOD COUNT 4.48 x10^6/uL (4.38-5.82); RED CELL DISTRIBUTION WIDTH 13.6 % (9.4-14.8)
[2018-02-23 21:56] LABS: CULTURE INDICATED? NO
[2018-02-23] MEDS ORDERED: SODIUM CHLORIDE FLUSH 10ML SYR IVF ONE (22:00)
[2018-02-23] MEDS ORDERED: SODIUM CHLORIDE 0.9% 1,000ML IVBOLUS ONE ×2 (22:00→22:30)
[2018-02-23 22:05] LABS: ALBUMIN 3.3 g/dL (3.4-5.0); ANION GAP 8 mmol/L (5-15); CALCIUM 8.9 mg/dL (8.5-10.1); CHLORIDE 94 mmol/L (98-107); CREATININE 1.43 mg/dL (0.7-1.3)
[2018-02-23] MEDS ORDERED: SAXA5TAB PO (22:05)
[2018-02-23] MEDS ORDERED: METF500T4 PO (22:05)
[2018-02-23 22:09] LABS: TROPONIN I < 0.015 ng/mL (0.000-0.045)
[2018-02-23 22:16] LABS: ACETONE, SERUM Negative (Negative)
[2018-02-23] MEDS ORDERED: INSULIN REGULAR 100 UNITS/ML, 3ML VIAL SQ-INSULIN ONE (22:30)
[2018-02-23] MEDS ORDERED: INSULIN REGULAR 100 UNITS/ML, 3ML VIAL ONE (22:45)
[2018-02-24] MEDS ORDERED: CEFTRIAXONE PMX 1GM/50ML 50 ML IVPB ONE (00:30)
[2018-02-24] MEDS ORDERED: INSULIN ASPART 70/30 100U/ML, PEN SQ-INSULIN ONE (00:30)
[2018-02-24] MEDS ORDERED: CEFTRIAXONE PMX 1GM/50ML 50 ML ONE (00:59)
[2018-02-24 03:17] VITALS: BP 125/77
== END 2018-02-24 03:18 | disposition home or self-care (01) ==
LOC: ED 23:32
DX: S81.802A Unspecified open wound, left lower leg, initial encounter (principal); E11.65 Type 2 diabetes mellitus with hyperglycemia; E66.9 Obesity, unspecified; E78.5 Hyperlipidemia, unspecified; I25.2 Old myocardial infarction; I25.10 Atherosclerotic heart disease of native coronary artery without angina pectoris; K21.9 Gastro-esophageal reflux disease without esophagitis; I48.91 Unspecified atrial fibrillation; J44.9 Chronic obstructive pulmonary disease, unspecified; I11.0 Hypertensive heart disease with heart failure; I50.9 Heart failure, unspecified; M10.9 Gout, unspecified; Z87.891 Personal history of nicotine dependence; Z95.5 Presence of coronary angioplasty implant and graft; Z99.81 Dependence on supplemental oxygen; X58.XXXA Exposure to other specified factors, initial encounter; Y93.89 Activity, other specified; Y92.89 Other specified places as the place of occurrence of the external cause; Y99.8 Other external cause status
CPT/HCPCS: 71045; 80048; 81003; 82010; 82040; 82803; 82962; 83880; 84484; 85025; 93005; 96361; 96365; 96372; 99285; J0696; J1815; J7030

== ENCOUNTER 2018-05-09 15:51 | Inpatient (IN) | payer OTHER ==
[~2018-05-09] VITALS: Ht 185.4 cm; Wt 165.2 kg
[~2018-05-09 15:51] MED LIST changes: -METF500T4 PO; +METF500T5 PO; +SAXA5TAB PO; -SIMV80TA3; +SIMV80TA7
[2018-05-09 16:57] LABS: ALANINE AMINOTRANSFERASE 22 U/L (12-78); ALBUMIN 3.4 g/dL (3.4-5.0); ANION GAP 10 mmol/L (5-15); CALCIUM 8.9 mg/dL (8.5-10.1); CHLORIDE 104 mmol/L (98-107)
[2018-05-09 16:58] LABS: BASOPHILS # (AUTO) 0.07 x10^3/uL (0-0.1); BASOPHILS % (AUTO) 1 % (0-1); EOSINOPHILS # (AUTO) 0.22 x10^3/uL (0-0.4); EOSINOPHILS % (AUTO) 2 % (1-7); INTERNATIONAL NORMALIZED RATIO 1.34 (0.93-1.1); LYMPHOCYTES # (AUTO) 4.22 x10^3/uL (1-3.4); LYMPHOCYTES % (AUTO) 40 % (22-44); MD NO; MEAN CORPUSCULAR HEMOGLOBIN 32.3 pg (27.5-34.5); MEAN CORPUSCULAR HGB CONC 34.9 g/dL (33.2-36.2); MEAN CORPUSCULAR VOLUME 92.7 fL (81-97); MEAN PLATELET VOLUME 9.4 fL (7.4-10.4); MONOCYTES # (AUTO) 0.76 x10^3/uL (0.2-0.8); MONOCYTES % (AUTO) 7 % (2-9); NEUTROPHILS # (AUTO) 5.35 x10^3/uL (1.8-6.8); NEUTROPHILS % (AUTO) 50 % (42-75); PLATELET COUNT 233 x10^3/uL (130-400); PROTHROMBIN TIME 13.7 Seconds (9.6-11.5); RED BLOOD COUNT 4.43 x10^6/uL (4.38-5.82); RED CELL DISTRIBUTION WIDTH 13.4 % (9.4-14.8)
[2018-05-09 17:01] LABS: ALKALINE PHOSPHATASE 78 U/L (45-117); BILIRUBIN,TOTAL 0.8 mg/dL (0.2-1.0); CREATININE 1.03 mg/dL (0.7-1.3); TOTAL PROTEIN 7.7 g/dL (6.4-8.2); TROPONIN I < 0.015 ng/mL (0.000-0.045)
[2018-05-09] MEDS ORDERED: NITROGLYCERIN 0.4 MG BOTTLE (25 TABS) SL PRN ×2 (17:30→18:00)
[2018-05-09] MEDS ORDERED: NITROGLYCERIN SINGLE TAB 0.4 MG SL ONE (17:43)
[2018-05-09] MEDS ORDERED: morphine SULFATE 10 MG/ML, 1ML IVPush PRN (18:00)
[2018-05-09] MEDS ORDERED: ACETAMINOPHEN 325 MG TABLET PO PRN (18:00)
[2018-05-09] MEDS ORDERED: BISACODYL 10 MG SUPP PR PRN (18:00)
[2018-05-09] MEDS ORDERED: ALBUTEROL SULFATE INH SCH (18:00)
[2018-05-09] MEDS ORDERED: metFORMIN 500 MG TABLET PO SCH (18:00)
[2018-05-09] MEDS ORDERED: POLYETHYLENE GLYCOL 17 GM PACKET PO PRN (18:00)
[2018-05-09] MEDS ORDERED: ONDANSETRON 2MG/ML, 2ML IVPush PRN (18:00)
[2018-05-09 18:30] VITALS: BP 135/80
[2018-05-09 18:50] LABS: HEMOGLOBIN A1C 12.7 % (4.2-6.3)
[2018-05-09] MEDS ORDERED: ALBUTEROL SULFATE 2.5 MG/3 ML NPPB PRN (19:00)
[2018-05-09 20:05] VITALS: BP 139/78
[2018-05-09] MEDS ORDERED: ATORVASTATIN 80 MG TABLET PO SCH (21:00)
[2018-05-09] MEDS ORDERED: IPRATROPIUM 0.5 MG/2.5 ML INHA NPPB SCH (21:00)
[2018-05-09] MEDS ORDERED: FLUTICASONE/VILANTEROL 200-25MCG/INH INH SCH (21:00)
[2018-05-09] MEDS ORDERED: INSULIN LISPRO 100 UNITS/ML, PEN SQ-INSULIN SCH (21:00)
[2018-05-09] MEDS: SOTALOL 120MG TABLET PO SCH (21:58)
[2018-05-09] MEDS: SODIUM CHLORIDE FLUSH 10ML SYR IVF SCH (21:58)
[2018-05-09] MEDS: DULOXETINE 20 MG CAPSULE.DR PO SCH (21:58)
[2018-05-09 23:22] LABS: TROPONIN I < 0.015 ng/mL (0.000-0.045)
[2018-05-10 02:38] VITALS: BP 134/82
[2018-05-10 05:38] LABS: BASOPHILS # (AUTO) 0.05 x10^3/uL (0-0.1); BASOPHILS % (AUTO) 1 % (0-1); EOSINOPHILS # (AUTO) 0.34 x10^3/uL (0-0.4); EOSINOPHILS % (AUTO) 4 % (1-7); LYMPHOCYTES # (AUTO) 3.82 x10^3/uL (1-3.4); LYMPHOCYTES % (AUTO) 40 % (22-44); MD NO; MEAN CORPUSCULAR HEMOGLOBIN 31.7 pg (27.5-34.5); MEAN CORPUSCULAR HGB CONC 33.9 g/dL (33.2-36.2); MEAN CORPUSCULAR VOLUME 93.3 fL (81-97); MEAN PLATELET VOLUME 9.4 fL (7.4-10.4); MONOCYTES # (AUTO) 0.83 x10^3/uL (0.2-0.8); MONOCYTES % (AUTO) 9 % (2-9); NEUTROPHILS # (AUTO) 4.53 x10^3/uL (1.8-6.8); NEUTROPHILS % (AUTO) 47 % (42-75); PLATELET COUNT 201 x10^3/uL (130-400); RED BLOOD COUNT 4.27 x10^6/uL (4.38-5.82); RED CELL DISTRIBUTION WIDTH 13.6 % (9.4-14.8)
[2018-05-10 05:43] LABS: CHLORIDE 106 mmol/L (98-107)
[2018-05-10 05:57] LABS: ALANINE AMINOTRANSFERASE 20 U/L (12-78); ANION GAP 9 mmol/L (5-15); BILIRUBIN,TOTAL 0.7 mg/dL (0.2-1.0); CALCIUM 8.4 mg/dL (8.5-10.1); CREATININE 0.96 mg/dL (0.7-1.3); TOTAL PROTEIN 7.1 g/dL (6.4-8.2); TROPONIN I < 0.015 ng/mL (0.000-0.045)
[2018-05-10 05:58] LABS: ALKALINE PHOSPHATASE 71 U/L (45-117)
[2018-05-10 07:48] VITALS: BP 115/75
[2018-05-10] MEDS ORDERED: REGADENOSON 0.4 MG/5 ML SYRINGE ONE (07:50)
[2018-05-10] MEDS: ASPIRIN 81 MG TABLET EC PO SCH ×2 (09:00→13:32)
[2018-05-10] MEDS ORDERED: ALLOPURINOL 300 MG TABLET PO SCH (09:00)
[2018-05-10] MEDS ORDERED: LOSARTAN 50MG TABLET PO SCH (09:00)
[2018-05-10] MEDS ORDERED: PANTOPROZOLE 40MG TABLET PO SCH (09:00)
[2018-05-10] MEDS ORDERED: FLUTICASONE/VILANTEROL 200-25MCG/INH INH SCH (09:00)
[2018-05-10] MEDS ORDERED: LINAGLIPTIN 5 MG TAB PO SCH (09:00)
[2018-05-10] MEDS ORDERED: RIVAROXABAN 20 MG TABLET PO SCH (09:00)
[2018-05-10] MEDS ORDERED: INSULIN LISPRO 100 UNITS/ML, PEN SQ-INSULIN SCH (09:00)
[2018-05-10] MEDS ORDERED: CYANOCOBALAMIN 1,000 MCG TABLET PO SCH (09:00)
[2018-05-10] MEDS ORDERED: SENNA/DOCUSATE TABLET PO SCH (09:00)
[2018-05-10] MEDS: SODIUM CHLORIDE FLUSH 10ML SYR IVF SCH (13:29)
[2018-05-10] MEDS: FUROSEMIDE 80 MG TABLET PO SCH ×2 (13:30→13:49)
[2018-05-10] MEDS: SOTALOL 120MG TABLET PO SCH (13:30)
[2018-05-10] MEDS: DULOXETINE 20 MG CAPSULE.DR PO SCH (13:50)
== END 2018-05-10 14:15 | disposition home or self-care (01) | DRG 303 ==
LOC: ED 17:38 → EDIP 17:52 → 5SO 18:25
PROVIDERS: ADMIT Internal Medicine; ATTEND Hospitalist
DX: I25.10 Atherosclerotic heart disease of native coronary artery without angina pectoris (principal); D68.69 Other thrombophilia; J96.10 Chronic respiratory failure, unspecified whether with hypoxia or hypercapnia; Z68.42 Body mass index [BMI] 45.0-49.9, adult; I25.9 Chronic ischemic heart disease, unspecified; E11.9 Type 2 diabetes mellitus without complications; E66.01 Morbid (severe) obesity due to excess calories; E78.5 Hyperlipidemia, unspecified; I11.0 Hypertensive heart disease with heart failure; I25.2 Old myocardial infarction; I25.5 Ischemic cardiomyopathy; I48.0 Paroxysmal atrial fibrillation; I50.9 Heart failure, unspecified; J44.9 Chronic obstructive pulmonary disease, unspecified; K21.9 Gastro-esophageal reflux disease without esophagitis; M10.9 Gout, unspecified; Z79.01 Long term (current) use of anticoagulants; Z79.4 Long term (current) use of insulin; Z82.49 Family history of ischemic heart disease and other diseases of the circulatory system; Z87.442 Personal history of urinary calculi; Z87.891 Personal history of nicotine dependence; Z95.5 Presence of coronary angioplasty implant and graft
CPT/HCPCS: 36415; 71045; 78452; 80053; 82962; 83036; 83880; 84484; 85025; 85610; 85730; 93005; 93017; 94640; 99285; J2785; A9502; C9898; J1815

== ENCOUNTER 2018-11-16 12:00 | Observation (INO) | payer MEDICARE, OTHER ==
[~2018-11-16] VITALS: Ht 185.4 cm; Wt 168.0 kg
[~2018-11-16 12:00] MED LIST changes: +LOSA50TA14 PO; -LOSA50TA6 PO; +METF500T17 PO; -METF500T5 PO; -POTA20PA PO; +POTA20PA31 PO; -RIVA10TA PO; +RIVA10TA2 PO; +SIMV80TA18; -SIMV80TA7
--- NOTE | 2018-11-16 12:11 | NUR ---
ON MONITOR. PT WITH COUGH, WEAKNESS, AND INCREASED SOB FOR 3 DAYS. PT TODAY WITH FEVER OF 100.6. ON OXYGEN 2L. PRODUCTIVE COUGH NOTED
[2018-11-16] MEDS ORDERED: ACETAMINOPHEN 500 MG TABLET PO ONE (12:30)
[2018-11-16] MEDS ORDERED: SODIUM CHLORIDE FLUSH 10ML SYR IVF ONE (12:30)
[2018-11-16] MEDS ORDERED: ACETAMINOPHEN 500 MG TABLET ONE (12:38)
[2018-11-16 12:55] LABS: BASOPHILS # (AUTO) 0.01 x10^3/uL (0-0.1); BASOPHILS % (AUTO) 0 % (0-1); EOSINOPHILS # (AUTO) 0.01 x10^3/uL (0-0.4); EOSINOPHILS % (AUTO) 0 % (1-7); LYMPHOCYTES # (AUTO) 1.26 x10^3/uL (1-3.4); LYMPHOCYTES % (AUTO) 18 % (22-44); MD NO; MEAN CORPUSCULAR HEMOGLOBIN 31.4 pg (27.5-34.5); MEAN CORPUSCULAR HGB CONC 33.6 g/dL (33.2-36.2); MEAN CORPUSCULAR VOLUME 93.5 fL (81-97); MONOCYTES # (AUTO) 0.84 x10^3/uL (0.2-0.8); MONOCYTES % (AUTO) 12 % (2-9); NEUTROPHILS # (AUTO) 4.92 x10^3/uL (1.8-6.8); NEUTROPHILS % (AUTO) 70 % (42-75); PLATELET COUNT 188 x10^3/uL (130-400); RED BLOOD COUNT 4.45 x10^6/uL (4.38-5.82); RED CELL DISTRIBUTION WIDTH 13.4 % (9.4-14.8)
[2018-11-16 12:55] LABS: RAPID INFLUENZA A Negative (Negative); RAPID INFLUENZA B Negative (Negative)
[2018-11-16 13:06] LABS: INTERNATIONAL NORMALIZED RATIO 1.21 (0.93-1.1); PROTHROMBIN TIME 12.7 Seconds (9.6-11.5)
[2018-11-16 13:07] LABS: ALANINE AMINOTRANSFERASE 18 U/L (12-78); ALBUMIN 3.1 g/dL (3.4-5.0); ANION GAP 7 mmol/L (5-15); CALCIUM 8.3 mg/dL (8.5-10.1); CHLORIDE 100 mmol/L (98-107); CREATININE 1.19 mg/dL (0.7-1.3)
[2018-11-16 13:11] LABS: ALKALINE PHOSPHATASE 80 U/L (45-117); BILIRUBIN,TOTAL 1.1 mg/dL (0.2-1.0); TOTAL PROTEIN 7.8 g/dL (6.4-8.2); TROPONIN I 0.035 ng/mL (0.000-0.045)
[2018-11-16] MEDS ORDERED: AZITHROMYCIN 500 MG in SODIUM CHLORIDE 0.9% 250 ML IV ONE (14:00)
[2018-11-16] MEDS ORDERED: CEFTRIAXONE PMX 2GM/50ML 50 ML IV ONE (14:00)
--- NOTE | 2018-11-16 14:00 | NUR ---
PT SITTING UP IN BED, GIVEN A SODA AND FOOD. PT APPEARS COMFORTABLE
[2018-11-16 15:45] VITALS: BP 107/65
[2018-11-16] MEDS ORDERED: ENOXAPARIN 40 MG/0.4 ML SQ SCH (16:00)
[2018-11-16] MEDS ORDERED: LABETALOL 5MG/ML, 20ML IVPush PRN (16:00)
[2018-11-16] MEDS ORDERED: LABETALOL 5 MG/ML SYRINGE IVPush PRN (16:00)
[2018-11-16] MEDS ORDERED: ONDANSETRON ODT 4 MG PO PRN (16:00)
[2018-11-16] MEDS ORDERED: ONDANSETRON 2MG/ML, 2ML IVPush PRN (16:00)
[2018-11-16] MEDS ORDERED: POLYETHYLENE GLYCOL 17 GM PACKET PO PRN (16:00)
[2018-11-16 16:28] LABS: FREE T4 (FREE THYROXINE) 1.16 ng/dL (0.76-1.46); THYROID STIMULATING HORMONE 0.576 mIU/L (0.358-3.740)
[2018-11-16] MEDS ORDERED: GLUCAGON 1 MG IM PRN (17:00)
[2018-11-16] MEDS ORDERED: DEXTROSE 4 GM TAB.CHEW PO PRN (17:00)
[2018-11-16] MEDS ORDERED: SUCRALFATE 1 GM TABLET PO SCH ×2 (17:00→20:50)
[2018-11-16] MEDS ORDERED: DEXTROSE 50%, 50ML SYRINGE IVPush PRN (17:00)
[2018-11-16] MEDS ORDERED: ALBUTEROL/IPRATROPIUM 2.5MG/0.5MG, 3 ML NPPB PRN (17:00)
[2018-11-16] MEDS ORDERED: ALBUTEROL SULFATE 2.5 MG/3 ML NPPB SCH (17:00)
[2018-11-16] MEDS: DOXYCYCLINE 100MG TABLET PO SCH ×2 (17:21→22:28)
[2018-11-16] MEDS: RIVAROXABAN 20 MG TABLET PO SCH (17:21)
[2018-11-16] MEDS: AMPICILLIN/SULBACTAM 3 GM in SODIUM CHLORIDE 0.9% 100 ML IV SCH (18:22)
[2018-11-16 18:47] VITALS: BP 117/72
[2018-11-16] MEDS ORDERED: IPRATROPIUM 0.5 MG/2.5 ML INHA NPPB SCH (21:00)
[2018-11-16] MEDS: SODIUM CHLORIDE FLUSH 10ML SYR IVF SCH (21:00)
[2018-11-16] MEDS ORDERED: TEMPLATE NON-FORMULARY MED. (Budesonide/Formoterol Fumarate (Symbicort 160-4.5 Mcg Inhaler INH SCH (21:00)
[2018-11-16] MEDS: ALBUTEROL/IPRATROPIUM 2.5MG/0.5MG, 3 ML NPPB SCH (21:15)
[2018-11-16] MEDS: BUDESONIDE 0.5 MG/2 ML INHA NPPB SCH (21:15)
[2018-11-16] MEDS: DULOXETINE 20 MG CAPSULE.DR PO SCH (22:28)
[2018-11-16] MEDS: ATORVASTATIN 80 MG TABLET PO SCH (22:28)
[2018-11-16] MEDS: INSULIN LISPRO 100 UNITS/ML, PEN SQ-INSULIN SCH ×2 (23:16)
[2018-11-17 00:20] VITALS: BP 123/73
[2018-11-17] MEDS: AMPICILLIN/SULBACTAM 3 GM in SODIUM CHLORIDE 0.9% 100 ML IV SCH ×4 (01:02→16:45)
[2018-11-17 06:01] LABS: BASOPHILS # (AUTO) 0.03 x10^3/uL (0-0.1); BASOPHILS % (AUTO) 0 % (0-1); EOSINOPHILS # (AUTO) 0.01 x10^3/uL (0-0.4); EOSINOPHILS % (AUTO) 0 % (1-7); LYMPHOCYTES # (AUTO) 1.74 x10^3/uL (1-3.4); LYMPHOCYTES % (AUTO) 26 % (22-44); MD NO; MEAN CORPUSCULAR HEMOGLOBIN 32.1 pg (27.5-34.5); MEAN CORPUSCULAR VOLUME 94.3 fL (81-97); MEAN PLATELET VOLUME 9.1 fL (7.4-10.4); MONOCYTES # (AUTO) 1.05 x10^3/uL (0.2-0.8); MONOCYTES % (AUTO) 16 % (2-9); NEUTROPHILS # (AUTO) 3.96 x10^3/uL (1.8-6.8); NEUTROPHILS % (AUTO) 58 % (42-75); PLATELET COUNT 161 x10^3/uL (130-400); RED BLOOD COUNT 3.97 x10^6/uL (4.38-5.82); RED CELL DISTRIBUTION WIDTH 13.5 % (9.4-14.8)
[2018-11-17 06:17] LABS: ALBUMIN 2.6 g/dL (3.4-5.0); ANION GAP 9 mmol/L (5-15); CALCIUM 8.4 mg/dL (8.5-10.1); CHLORIDE 104 mmol/L (98-107)
[2018-11-17 06:22] LABS: ALANINE AMINOTRANSFERASE 15 U/L (12-78); ALKALINE PHOSPHATASE 71 U/L (45-117); BILIRUBIN,TOTAL 0.8 mg/dL (0.2-1.0); CREATININE 1.02 mg/dL (0.7-1.3); TOTAL PROTEIN 6.6 g/dL (6.4-8.2)
[2018-11-17] MEDS: INSULIN LISPRO 100 UNITS/ML, PEN SQ-INSULIN SCH ×6 (07:00→19:47)
[2018-11-17] MEDS: PANTOPRAZOLE 40 MG IV IVPush SCH (07:30)
[2018-11-17] MEDS: ALBUTEROL/IPRATROPIUM 2.5MG/0.5MG, 3 ML NPPB SCH ×2 (07:55→20:55)
[2018-11-17] MEDS: BUDESONIDE 0.5 MG/2 ML INHA NPPB SCH ×2 (07:55→20:55)
[2018-11-17 07:59] VITALS: BP 106/60
[2018-11-17] MEDS ORDERED: POTASSIUM CHLORIDE 20 MEQ TAB.ER.PRT PO ONE ×2 (08:30→11:30)
[2018-11-17] MEDS: SENNA/DOCUSATE TABLET PO SCH (09:00)
[2018-11-17] MEDS: SODIUM CHLORIDE FLUSH 10ML SYR IVF SCH ×2 (09:00→19:33)
[2018-11-17] MEDS: ASPIRIN 81 MG TABLET EC PO SCH (09:00)
[2018-11-17] MEDS: DULOXETINE 20 MG CAPSULE.DR PO SCH ×2 (09:35→19:33)
[2018-11-17] MEDS: PANTOPROZOLE 40MG TABLET PO SCH (09:35)
[2018-11-17] MEDS: DOXYCYCLINE 100MG TABLET PO SCH ×2 (09:35→19:33)
[2018-11-17] MEDS: LOSARTAN 50MG TABLET PO SCH (09:35)
[2018-11-17] MEDS: CYANOCOBALAMIN 1,000 MCG TABLET PO SCH (09:35)
[2018-11-17] MEDS: FUROSEMIDE 20 MG/2 ML IV SCH (09:40)
[2018-11-17 14:45] VITALS: BP 106/67
[2018-11-17] MEDS: RIVAROXABAN 20 MG TABLET PO SCH (16:46)
[2018-11-17 18:43] VITALS: BP 121/71
[2018-11-17] MEDS: ATORVASTATIN 80 MG TABLET PO SCH (19:33)
[2018-11-17] MEDS ORDERED: ACETAMINOPHEN 325 MG TABLET PO PRN (20:00)
[2018-11-18] MEDS: AMPICILLIN/SULBACTAM 3 GM in SODIUM CHLORIDE 0.9% 100 ML IV SCH ×3 (00:41→12:11)
[2018-11-18 00:45] VITALS: BP 102/64
[2018-11-18 05:26] LABS: BASOPHILS # (AUTO) 0.05 x10^3/uL (0-0.1); BASOPHILS % (AUTO) 1 % (0-1); EOSINOPHILS # (AUTO) 0.11 x10^3/uL (0-0.4); EOSINOPHILS % (AUTO) 2 % (1-7); LYMPHOCYTES # (AUTO) 2.57 x10^3/uL (1-3.4); LYMPHOCYTES % (AUTO) 35 % (22-44); MD NO; MEAN CORPUSCULAR HEMOGLOBIN 32.1 pg (27.5-34.5); MEAN CORPUSCULAR HGB CONC 33.9 g/dL (33.2-36.2); MEAN CORPUSCULAR VOLUME 94.6 fL (81-97); MEAN PLATELET VOLUME 8.6 fL (7.4-10.4); MONOCYTES # (AUTO) 1.15 x10^3/uL (0.2-0.8); MONOCYTES % (AUTO) 16 % (2-9); NEUTROPHILS # (AUTO) 3.42 x10^3/uL (1.8-6.8); NEUTROPHILS % (AUTO) 47 % (42-75); PLATELET COUNT 165 x10^3/uL (130-400); RED BLOOD COUNT 3.88 x10^6/uL (4.38-5.82)
[2018-11-18 05:39] LABS: ALBUMIN 2.5 g/dL (3.4-5.0); ANION GAP 7 mmol/L (5-15); CALCIUM 8.2 mg/dL (8.5-10.1); CHLORIDE 108 mmol/L (98-107)
[2018-11-18 05:40] LABS: CREATININE 0.99 mg/dL (0.7-1.3)
[2018-11-18] MEDS: PANTOPRAZOLE 40 MG IV IVPush SCH (07:30)
[2018-11-18 08:11] VITALS: BP 115/69
[2018-11-18] MEDS: ALBUTEROL/IPRATROPIUM 2.5MG/0.5MG, 3 ML NPPB SCH (08:15)
[2018-11-18] MEDS: BUDESONIDE 0.5 MG/2 ML INHA NPPB SCH (08:15)
[2018-11-18] MEDS: SENNA/DOCUSATE TABLET PO SCH (08:19)
[2018-11-18] MEDS: SODIUM CHLORIDE FLUSH 10ML SYR IVF SCH (08:32)
[2018-11-18] MEDS: INSULIN LISPRO 100 UNITS/ML, PEN SQ-INSULIN SCH ×4 (08:32→15:53)
[2018-11-18] MEDS: FUROSEMIDE 20 MG/2 ML IV SCH (08:32)
[2018-11-18] MEDS: DULOXETINE 20 MG CAPSULE.DR PO SCH (08:33)
[2018-11-18] MEDS: LOSARTAN 50MG TABLET PO SCH (08:33)
[2018-11-18] MEDS: PANTOPROZOLE 40MG TABLET PO SCH (08:33)
[2018-11-18] MEDS: ASPIRIN 81 MG TABLET EC PO SCH (08:33)
[2018-11-18] MEDS: DOXYCYCLINE 100MG TABLET PO SCH (08:33)
[2018-11-18] MEDS: CYANOCOBALAMIN 1,000 MCG TABLET PO SCH (08:33)
[2018-11-18] MEDS ORDERED: TAMS0.4C2 PO (10:21)
[2018-11-18] MEDS ORDERED: METO200T47 PO (10:21)
[2018-11-18] MEDS ORDERED: LIDO35.46 TP (10:21)
[2018-11-18] MEDS ORDERED: METF500T27 PO (10:21)
[2018-11-18] MEDS ORDERED: DULO30CA2 PO (10:21)
[2018-11-18] MEDS ORDERED: MAGN400T26 PO (10:21)
[2018-11-18] MEDS ORDERED: INSU100I17 SQ (10:21)
--- NOTE | 2018-11-18 14:30 | NUR ---
SENIOR ENVIRONMENTAL PRACTICE LEADER recommends a chopped diet with thin liquids. Swallow strategies and precautions were reviewed and placed on an orange sheet on her whiteboard. Addendum: 11/18/18 at 1458 by LARA BUTT Amended: Links added.
[2018-11-18] MEDS ORDERED: AMOX1TAB64 PO (14:31)
[2018-11-18] MEDS ORDERED: FURO80TA3 PO (14:31)
[2018-11-18] MEDS ORDERED: DOXY100T PO (14:31)
[2018-11-18 14:35] VITALS: BP 116/70
== END 2018-11-18 16:24 | disposition home or self-care (01) ==
LOC: ED 14:12 → EDIP 14:15 → INTOOBSV 14:15 → 3NE 14:58
PROVIDERS: ADMIT Hospitalist; ATTEND Hospitalist
DX: R07.9 Chest pain, unspecified (principal); A41.9 Sepsis, unspecified organism; J18.9 Pneumonia, unspecified organism; J96.21 Acute and chronic respiratory failure with hypoxia; D68.69 Other thrombophilia; J44.0 Chronic obstructive pulmonary disease with (acute) lower respiratory infection; I50.30 Unspecified diastolic (congestive) heart failure; Z68.42 Body mass index [BMI] 45.0-49.9, adult; R53.81 Other malaise; E11.9 Type 2 diabetes mellitus without complications; E66.01 Morbid (severe) obesity due to excess calories; F17.200 Nicotine dependence, unspecified, uncomplicated; I11.0 Hypertensive heart disease with heart failure; I25.10 Atherosclerotic heart disease of native coronary artery without angina pectoris; I48.0 Paroxysmal atrial fibrillation; K21.9 Gastro-esophageal reflux disease without esophagitis; Z96.652 Presence of left artificial knee joint; M10.9 Gout, unspecified; Z87.442 Personal history of urinary calculi; Z82.49 Family history of ischemic heart disease and other diseases of the circulatory system; Z95.5 Presence of coronary angioplasty implant and graft; Z81.1 Family history of alcohol abuse and dependence
CPT/HCPCS: 36415; 71045; 80048; 80053; 82040; 82962; 83036; 83605; 83735; 84100; 84145; 84439; 84443; 84484; 85025; 85610; 85730; 87040; 87070; 87205; 87400; 92610; 93005; 94640; 96365; 96366; 96367; 96372; 96375; 96376; 99285; G0378; J0295; J0456; J0696; J1815; J1940; J7050; J7620; J7626

== ENCOUNTER 2018-11-22 14:39 | Emergency (ER) | payer MEDICARE ==
[~2018-11-22] VITALS: Ht 185.4 cm; Wt 161.1 kg
[~2018-11-22 14:39] MED LIST changes: +AMOX1TAB64 PO; +DOXY100T PO; +DULO30CA2 PO; +INSU100I17 SQ; +LIDO35.46 TP; +MAGN400T26 PO; +METF500T27 PO; +METO200T47 PO; +TAMS0.4C2 PO
--- NOTE | 2018-11-22 15:09 | NUR ---
using skin marker, outlined redness on left foot
[2018-11-22 15:34] LABS: ALBUMIN 2.8 g/dL (3.4-5.0); ANION GAP 9 mmol/L (5-15); CALCIUM 8.4 mg/dL (8.5-10.1); CHLORIDE 101 mmol/L (98-107); CREATININE 1.17 mg/dL (0.7-1.3)
[2018-11-22 15:40] LABS: BASOPHILS # (AUTO) 0.04 x10^3/uL (0-0.1); BASOPHILS % (AUTO) 1 % (0-1); EOSINOPHILS # (AUTO) 0.15 x10^3/uL (0-0.4); EOSINOPHILS % (AUTO) 2 % (1-7); LYMPHOCYTES # (AUTO) 2.75 x10^3/uL (1-3.4); LYMPHOCYTES % (AUTO) 33 % (22-44); MD NO; MEAN CORPUSCULAR VOLUME 93.9 fL (81-97); MEAN PLATELET VOLUME 8.7 fL (7.4-10.4); MONOCYTES # (AUTO) 0.72 x10^3/uL (0.2-0.8); MONOCYTES % (AUTO) 9 % (2-9); NEUTROPHILS # (AUTO) 4.68 x10^3/uL (1.8-6.8); NEUTROPHILS % (AUTO) 56 % (42-75); PLATELET COUNT 281 x10^3/uL (130-400); RED BLOOD COUNT 4.25 x10^6/uL (4.38-5.82); RED CELL DISTRIBUTION WIDTH 13.8 % (9.4-14.8)
--- NOTE | 2018-11-22 15:57 | NUR ---
pt's chart up for recheck
[2018-11-22] MEDS ORDERED: INSULIN REGULAR 100 UNITS/ML, 3ML VIAL ONE (15:59)
[2018-11-22] MEDS ORDERED: INSULIN REGULAR 100 UNITS/ML, 3ML VIAL SQ-INSULIN ONE (16:00)
--- NOTE | 2018-11-22 16:02 | NUR ---
pt medicated with insulin per emar
--- NOTE | 2018-11-22 17:04 | NUR ---
bs 422
[2018-11-22 17:05] VITALS: BP 136/72
--- NOTE | 2018-11-22 18:35 | NUR ---
Patient given discharge instructions and they have confirmed that they understand the instructions. Patient ambulatory with steady gait.
== END 2018-11-22 18:36 | disposition home or self-care (01) ==
LOC: ED 15:19
DX: E11.65 Type 2 diabetes mellitus with hyperglycemia (principal); E11.42 Type 2 diabetes mellitus with diabetic polyneuropathy; E11.621 Type 2 diabetes mellitus with foot ulcer; L97.521 Non-pressure chronic ulcer of other part of left foot limited to breakdown of skin; I11.0 Hypertensive heart disease with heart failure; I50.9 Heart failure, unspecified; J44.9 Chronic obstructive pulmonary disease, unspecified; K21.9 Gastro-esophageal reflux disease without esophagitis; Z87.891 Personal history of nicotine dependence; Z79.899 Other long term (current) drug therapy; Z87.01 Personal history of pneumonia (recurrent)
CPT/HCPCS: 36415; 80048; 82040; 82962; 85025; 96372; 99283